=== PATIENT | male | born 1960 | race Caucasian/White ===

== ENCOUNTER 2016-08-28 20:40 | Emergency (ER) | payer BC ==
--- NOTE | 2016-08-28 21:29 | UC ---
Throat Pain/Nasal Miguel HPI - HPI Summary HPI Summary: # days of worsening nasal congestion and sore throat---spoke with a pharmacist 2 days ago who suggested Zyrtec D---Pt is unsure if it is helping or not---has no fever, - History of Current Complaint Hx Obtained From: Patient Onset/Duration: Gradual Onset, Lasting Days - 3, Still Present Severity: Moderate Pain Intensity: 5 Pain Scale Used: 0-10 Numeric Cough: None Associated Signs & Symptoms: Positive: Sinus Discomfort, Nasal Discharge <Hoda Fallon - Last Filed: 08/28/16 22:29> <Yazmin Morales - Last Filed: 08/29/16 07:25> - History of Current Complaint Chief Complaint: UCGeneralIllness Stated Complaint: SORE THROAT,SINUS PRESSURE & PAIN,CONGESTION Time Seen by Provider: 08/28/16 21:00 - Allergies/Home Medications Allergies/Adverse Reactions: Allergies Allergy/AdvReac Type Severity Reaction Status Date / Time No Known Allergies Allergy Verified 04/03/16 16:43 Home Medications: Home Medications Perphenazine (NF) 8 mg PO 08/28/16 [History] PMH/Surg Hx/FS Hx/Imm Hx Previously Healthy: No Endocrine History Of: Reports: Diabetes Denies: Thyroid Disease Cardiovascular History Of: Denies: Cardiac Disorders, Hypertension Respiratory History Of: Denies: COPD, Asthma GI/ History Of: Denies: Ulcer - Surgical History Surgical History: Yes Surgery Procedure, Year, and Place: HERNIA REPAIR - 1994. 1997. ANKLE - LIGAMENT REPAIR RIGHT AND LEFT - Family History Known Family History: Positive: Hypertension, Diabetes Negative: Cardiac Disease - Social History Occupation: Employed Full-time Lives: With Family Alcohol Use: None Substance Use Type: None, Prescribed Smoking Status (MU): Former Smoker <Hoda Fallon - Last Filed: 08/28/16 22:29> Review of Systems Constitutional: Negative Skin: Negative Eyes: Negative ENT: Sore Throat, Nasal Discharge Respiratory: Negative Cardiovascular: Negative Gastrointestinal: Negative Genitourinary: Negative Motor: Negative Neurovascular: Negative Musculoskeletal: Negative Neurological: Negative Psychological: Negative All Other Systems Reviewed And Are Negative: Yes <Hoda Fallon - Last Filed: 08/28/16 22:29> Physical Exam Triage Information Reviewed: Yes Appearance: Well-Appearing, No Pain Distress, Well-Nourished Vital Signs: Initial Vital Signs Temp 98.1 F 08/28/16 21:16 Pulse 64 08/28/16 21:16 Resp 16 08/28/16 21:16 BP 146/102 08/28/16 21:16 Pulse Ox 98 08/28/16 21:16 Vital Signs Reviewed: Yes Eye Exam: Normal Eyes: Positive: Conjunctiva Clear ENT Exam: Normal ENT: Positive: Normal ENT inspection, Hearing grossly normal, Pharynx normal, Nasal congestion, Nasal drainage, TMs normal. Negative: Tonsillar swelling, Tonsillar exudate, Trismus, Muffled/hoarse voice Dental Exam: Normal Neck exam: Normal Neck: Positive: Supple, Nontender, No Lymphadenopathy Respiratory Exam: Normal Respiratory: Positive: Chest non-tender, Lungs clear, Normal breath sounds, No respiratory distress, No accessory muscle use Cardiovascular Exam: Normal Cardiovascular: Positive: RRR, No Murmur, Pulses Normal, Brisk Capillary Refill Musculoskeletal Exam: Normal Musculoskeletal: Positive: Strength Intact, ROM Intact, No Edema Neurological Exam: Normal Neurological: Positive: Alert, Muscle Tone Normal Psychological Exam: Normal Skin Exam: Normal <Hoda Fallon - Last Filed: 08/28/16 22:29> Vital Signs: Initial Vital Signs Temp 98.1 F 08/28/16 21:16 Pulse 64 08/28/16 21:16 Resp 16 08/28/16 21:16 BP 146/102 08/28/16 21:16 Pulse Ox 98 08/28/16 21:16 <Yazmin Morales - Last Filed: 08/29/16 07:25> Throat Pain/Nasal Course/Dx - Course Assessment/Plan: add flonase--if symptoms fail to improve or worsen in the next 7 days may add antibiodic, recheck bp with pcp consider DASH Diet plan - Differential Dx/Diagnosis Differential Diagnosis/HQI/PQRI: Laryngitis, Pharyngitis, Sinusitis, URI Provider Diagnoses: Rhinosinuisitis, High Blood Pressure without dx of Hypertension <Hoda Fallon - Last Filed: 08/28/16 22:29> Discharge <Hoda Fallon - Last Filed: 08/28/16 22:29> <Yazmin Morales - Last Filed: 08/29/16 07:25> - Discharge Plan Condition: Stable Disposition: HOME Prescriptions: Amoxicillin/Clavulanate TAB* [Augmentin TAB 875*] 875 mg PO BID #20 tab Fluticasone NASAL SPRAY 50MCG* [Flonase NASAL SPRAY 50MCG*] 2 spray BOTH NARES DAILY #1 btl Patient Education Materials: Rhinosinusitis (ED), DASH Eating Plan (ED), Hypertension (ED), How to Use Nasal [place] (ED) Referrals: Louie Peralta MD [Primary Care Provider] - 2 Weeks Attestation Statement User Type: Provider - I was available for consult. This patient was seen by the SB. The patient was not presented to, seen by, or examined by me. -[place] <Yazmin Morales - Last Filed: 08/29/16 07:25>
[2016-08-28 22:46] VITALS: BP 135/95
== END 2016-08-28 21:55 | disposition home or self-care (01) ==
LOC: UCEAST 20:40
DX: J32.9 Chronic sinusitis, unspecified (principal); R03.0 Elevated blood-pressure reading, without diagnosis of hypertension; E11.9 Type 2 diabetes mellitus without complications; Z87.891 Personal history of nicotine dependence
CPT/HCPCS: 99202; G0463

== ENCOUNTER → 2017-05-31 07:00 | Day surgery (SDC) | payer BC ==
--- NOTE | 2017-05-27 03:54 | HP ---
PREOPERATIVE HISTORY AND PHYSICAL: DATE OF SURGERY/ADMISSION: 05/31/17 [facility] DATE OF OFFICE VISIT/ENCOUNTER: 05/25/17 ATTENDING SURGEON: Daisy Raines MD * (DICTATED BY ELIAZAR DAVIS) PROCEDURE: Right hand excision mass. CHIEF COMPLAINT: Mass, right hand. HISTORY OF PRESENT ILLNESS: This is a 57-year-old male who reports a painful mass on the volar aspect of his right hand in line with his index finger. It has been present approximately 1 month. It hurts whenever he squeezes anything. It has become quite bothersome. 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 He would like to have the mass removed. PAST MEDICAL HISTORY: 1. Bipolar disorder. 2. Questionable history of rheumatoid arthritis. 3. 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 4. Asthma. 5. Diabetes type 2. PAST SURGICAL HISTORY: 1. Hernia. 2. Ankle surgery. CURRENT MEDICATIONS: 1. Centrum Silver adult vitamin. 2. Kourtney-C 1000 mg daily. 3. Levothyroxine sodium 100 mcg daily. 4. Bearden carbonate ER 450 mg 3 tabs daily. 5. Metformin HCl 500 mg twice a day. 6. [place]-3 1000 mg 1 daily. 7. Perphenazine 8 mg daily. 8. Vitamin B6 25 mg daily. 9. Vitamin B12 1000 mcg daily. ALLERGIES: No known drug allergies. FAMILY MEDICAL HISTORY: Cancer, rheumatoid arthritis, diabetes, and heart disease. 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 He is a former smoker. He quit smoking 30 years ago. He denies illicit drug use and does not drink alcohol. REVIEW OF SYSTEMS: General: Negative for fevers, chills, or night sweats. No known anesthesia problems. HEENT: Negative for headache, lightheadedness, or syncopal episodes. Integumentary: Negative for abrasions, lesions, or open wounds. Cardiothoracic: Negative for hypertension, chest pain, palpitations, and edema. Pulmonary: Positive for shortness of breath related to asthma. Negative for chronic cough or COPD. GI: Negative for nausea, vomiting, diarrhea, constipation, or GERD. : Negative for nocturia, urinary frequency , urgency, history of UTIs, or kidney problems. Musculoskeletal: Positive for current complaint. Negative for chronic or intermittent back pain or history of fractures. Neurological: Positive for bipolar disorder. Negative for paresthesias, numbness, history of seizure, stroke, or epilepsy. Endocrine: Positive for diabetes mellitus type 2 and hypothyroidism associated with medication. Hematologic: Negative for easy bruising, anemia, excessive bleeding , or history of DVT. Infectious Disease: Negative for history of MRSA, hepatitis C, or HIV. PHYSICAL EXAMINATION GENERAL: Well-developed, well-nourished 57-year-old male, in no acute distress. VITAL SIGNS: Height 5 feet 9 inches, weight 230 pounds. Pulse rate 62, blood pressure 158/62. HEENT: Normocephalic, atraumatic. Pupils are equal, round, and reactive to light and accommodation. Extraocular movements are intact. NECK: Supple. No palpable lymph nodes. Throat is clear. PULMONARY: Lungs are clear to auscultation bilaterally. No wheezes, rales, or rhonchi. CARDIOVASCULAR: Regular rate and rhythm. S1 and S2. No murmurs, rubs, or gallops. No edema. ABDOMEN: Positive bowel sounds. Soft, nontender. NEUROLOGIC: Alert and oriented x3. Cranial nerves II through XII are intact. Sensation is intact to light touch. PERIPHERAL VASCULAR: 2+ radial and ulnar pulses. Negative Ronan test. MUSCULOSKELETAL: On exam of his right hand, he has a tender cystic mass just proximal to the A1 chloe of the right index finger. He can flex and extend his finger well and there is no clicking or locking. The mass is very tender. It does not have a positive Tinel's sign. Neurovascular function is intact. SKIN: Intact. IMAGING STUDIES: X-rays AP, lateral and oblique of the right hand show no significant bony abnormality. ASSESSMENT: Ganglion cyst of the right index finger flexor tendon sheath. PLAN: The patient is scheduled to undergo a right hand excision mass with Dr. Raines on 05/27/17. He will return to the office 10 days postop for followup and suture removal. A prescription for Tylenol No. 3 was e-scribed to the patient's pharmacy for postoperative pain management. ELIAZAR DAVIS [id number]/[facility] #: [id number] VICK
[~2017-05-31 07:00] MED LIST: Buffered Lidocaine 0.9% SYRIN* 5 ML/SYR SYRINGE INTRADERM ONE; DiMENhydriNATE IV* 50 MG/ML VIAL IV PUSH PRN; Famotidine IV* 10 MG/ML 2 ML (20 mg) IV ONE; Famotidine IV* 10 MG/ML 2 ML (20 mg) ONE; KETAMINE HCL* 50 MG/ML 10 ML VIAL ONE; Ketorolac INJ* 30 MG/ML 1 ML VIAL ONE; Lidocaine 1% INJ* 10 MG/ML 30 ML SDV ONE; Lidocaine 2% PF * 5 ML VIAL ONE; Midazolam* 1 MG/ML 2 ML VIAL (2 MG) ONE; Naloxone* 0.4 MG/ML 1 ML VIAL IV PRN; Ondansetron INJ* 2 MG/ML VIAL ONE; PROCHLORPERAZINE INJ 5 MG/ML 2 ML VIAL IV PRN; Propofol* 10 MG/ML 20 ML BTL IV PUSH ONE; fentaNYL* 50 MCG/ML 2 ML VIAL (100 MCG VIAL) IV PRN; fentaNYL* 50 MCG/ML 2 ML VIAL (100 MCG VIAL) ONE; oxyCODONE/Acetamin 5/325 MG* TAB PO PRN
[2017-05-31 09:24] VITALS: BP 147/92
--- NOTE | 2017-05-31 22:50 | OP ---
DATE OF OPERATION: 05/31/17 [facility] DATE OF : 64 SURGEON: Daisy Raines MD [employer] TECHNICIAN: ELIAZAR Thompson ANESTHESIA: Local MAC. PRE-OP DIAGNOSIS: Right hand mass. POST-OP DIAGNOSIS: Right hand mass. OPERATIVE PROCEDURE: Removal, right hand mass. INDICATIONS: Tavo is a 57-year-old man with a painful mass on the volar aspect of his right index finger overlying the A1 chloe. He presents for removal. ESTIMATED BLOOD LOSS: Zero. TOURNIQUET TIME: 10 minutes. DESCRIPTION OF PROCEDURE: The patient was brought to the operating room, was given a sedation anesthetic and a local infiltration of 10 cc of 1% plain lidocaine in the palm of his right hand. The skin of his right hand and forearm was prepped and draped in the usual sterile fashion. The hand and forearm were exsanguinated and the tourniquet elevated to 250 mmHg. A transverse incision was made centered over the mass. We dissected bluntly through the subcutaneous tissue down to the A1 chloe. There was a large ganglion cyst emanating from the chloe. The neurovascular bundles were retracted by the surgical assistant certified, Giovanna Sargent. The A1 chloe was incised longitudinally, and a portion of it removed with the ganglion cyst attached to it. The flexor tendons were in good condition. The wound was irrigated and the skin edges reapproximated with 4-0 nylon suture. The wound was dressed with Xeroform, 4x4, Webril, and an Wilmer wrap. The patient tolerated the procedure well and was brought to the recovery room in good condition. [id number]/[facility] #: [id number] VICK
== END | disposition home or self-care (01) ==
LOC: OREAST 07:00
PROVIDERS: ATTEND Orthopaedic Surgery
DX: M67.441 Ganglion, right hand (principal); E11.9 Type 2 diabetes mellitus without complications; Z79.84 Long term (current) use of oral hypoglycemic drugs; F31.9 Bipolar disorder, unspecified; E03.9 Hypothyroidism, unspecified; J45.909 Unspecified asthma, uncomplicated; Z87.891 Personal history of nicotine dependence
CPT/HCPCS: 88304; J1885; J2250; J2405; J2704; J3010

== ENCOUNTER 2017-10-05 20:00 | Emergency (ER) | payer BC ==
[2017-10-05 20:23] VITALS: BP 160/111
--- NOTE | 2017-10-05 20:44 | UC ---
Skin Complaint HPI - HPI Summary HPI Summary: insect bite to right arm and right leg 1 week ago - History of Current Complaint Chief Complaint: UCSkin Time Seen by Provider: 10/05/17 20:37 Stated Complaint: BUG BITES Hx Obtained From: Patient Onset/Duration: Sudden Onset, Lasting Weeks - 1, Still Present Skin Exposure Onset/Duration: Minutes Ago Onset Severity: Mild Current Severity: None Pain Intensity: 0 Pain Scale Used: 0-10 Numeric Location: Discrete Aggravating Factor(s): Nothing Alleviating Factor(s): Nothing Associated Signs & Symptoms: Positive: Negative Related History: Insect Bite/Sting - Allergy/Home Medications Allergies/Adverse Reactions: Allergies Allergy/AdvReac Type Severity Reaction Status Date / Time onion Allergy Severe GI Upset Verified 10/05/17 20:23 orange juice Allergy Severe GI Upset Verified 10/05/17 20:23 Perfume [Fragrance] Allergy Headache Verified 10/05/17 20:23 ENVIRONMENTAL Allergy Unknown Uncoded 10/05/17 20:23 Reaction Details Review of Systems Constitutional: Negative Skin: Other - insect bite (never seen a tick---patient is concerned about LYME) Eyes: Negative ENT: Negative Respiratory: Negative Cardiovascular: Negative Gastrointestinal: Negative Genitourinary: Negative Motor: Negative Neurovascular: Negative Musculoskeletal: Negative Neurological: Negative Psychological: Negative Is Patient Immunocompromised?: No All Other Systems Reviewed And Are Negative: Yes PMH/Surg Hx/FS Hx/Imm Hx Previously Healthy: No Endocrine History: Diabetes, Hypothyroidism Psychological History: Bipolar Disorder - Surgical History Surgical History: Yes Surgery Procedure, Year, and Place: HERNIA REPAIR - 1994. 1997-LEFT AND RIGHT. ANKLE - LIGAMENT REPAIR RIGHT AND LEFT. TONSILLECTOMY. 2012-RIGHT INDEX FINGER -EXCISION OF GANGLION. RIGHT MIDDLE FINGER BIOPSY - Family History Known Family History: Positive: Hypertension, Diabetes Negative: Cardiac Disease - Social History Occupation: Employed Full-time Lives: With Family Alcohol Use: Rare Substance Use Type: None Smoking Status (MU): Former Smoker Amount Used/How Often: OCCASIONALLY X 3 YEARS Have You Smoked in the Last Year: No When Did the Patient Quit Smoking/Using Tobacco: 30+ YEARS AGO Physical Exam Triage Information Reviewed: Yes Appearance: Well-Appearing, No Pain Distress, Well-Nourished Vital Signs: Initial Vital Signs Temp 97.5 F 10/05/17 20:19 Pulse 55 10/05/17 20:19 Resp 18 10/05/17 20:19 BP 160/111 10/05/17 20:19 Pulse Ox 98 10/05/17 20:19 Vital Signs Reviewed: Yes Eye Exam: Normal Eyes: Positive: Conjunctiva Clear ENT Exam: Normal ENT: Positive: Normal ENT inspection, Hearing grossly normal, Pharynx normal. Negative: Trismus, Muffled voice, Hoarse voice Dental Exam: Normal Neck exam: Normal Neck: Positive: Supple, Nontender Respiratory Exam: Normal Respiratory: Positive: Chest non-tender, No respiratory distress, No accessory muscle use Cardiovascular Exam: Normal Cardiovascular: Positive: RRR, Pulses Normal, Brisk Capillary Refill Musculoskeletal Exam: Normal Musculoskeletal: Positive: Strength Intact, ROM Intact, No Edema Neurological Exam: Normal Neurological: Positive: Alert, Muscle Tone Normal Psychological Exam: Normal Psychological: Positive: Normal Response To Family Skin Exam: Normal Course/Dx - Course Course Of Treatment: patient is concerned about Lyme disease. Education and reassurance and written information provided, follow with pcp for further concerns and blood pressure re-check - Diagnoses Provider Diagnoses: insect bites, elevated blood pressure without dx of hypertension Discharge - Sign-Out/Discharge Documenting (check all that apply): Patient Departure - Discharge Plan Condition: Stable Disposition: HOME Patient Education Materials: Lyme Disease (ED), Tick Bite (ED), Hypertension ( ED) Referrals: Louie Peralta MD [Primary Care Provider] - 1 Week (BP recheck ) - Billing Disposition and Condition Condition: STABLE Disposition: Home
== END 2017-10-05 20:54 | disposition home or self-care (01) ==
LOC: UCEAST 20:00
DX: S40.861A Insect bite (nonvenomous) of right upper arm, initial encounter (principal); S80.861A Insect bite (nonvenomous), right lower leg, initial encounter; W57.XXXA Bitten or stung by nonvenomous insect and other nonvenomous arthropods, initial encounter; Y93.9 Activity, unspecified; Y92.9 Unspecified place or not applicable; R03.0 Elevated blood-pressure reading, without diagnosis of hypertension; E11.9 Type 2 diabetes mellitus without complications; Z79.84 Long term (current) use of oral hypoglycemic drugs; E03.9 Hypothyroidism, unspecified; Z82.49 Family history of ischemic heart disease and other diseases of the circulatory system; Z83.3 Family history of diabetes mellitus; Z87.891 Personal history of nicotine dependence
CPT/HCPCS: 99211; G0463

== ENCOUNTER 2018-01-28 19:13 | Emergency (ER) | payer BC ==
[2018-01-28 19:43] VITALS: BP 165/105
[2018-01-28] MEDS ORDERED: Amoxicillin/Clavulanate TAB* 875 MG PO ONE (20:41)
--- NOTE | 2018-01-28 20:41 | UC ---
Throat Pain/Nasal Miguel HPI - HPI Summary HPI Summary: pain congestion yellow nasal drainage, worsening headaches over the past several days - History of Current Complaint Chief Complaint: UCRespiratory Stated Complaint: CONGESTED Time Seen by Provider: 01/28/18 20:10 Hx Obtained From: Patient Onset/Duration: Gradual Onset, Lasting Days, Still Present Pain Intensity: 8 Pain Scale Used: 0-10 Numeric Cough: None Associated Signs & Symptoms: Positive: Sinus Discomfort, Nasal Discharge - Allergies/Home Medications Allergies/Adverse Reactions: Allergies Allergy/AdvReac Type Severity Reaction Status Date / Time coffee (Coffea arabica) Allergy Severe Diarrhea Verified 01/28/18 19:44 onion Allergy Severe GI Upset Verified 01/28/18 19:44 orange juice Allergy Severe GI Upset Verified 01/28/18 19:44 Perfume [Fragrance] Allergy Headache Verified 01/28/18 19:44 CHOCOLATE Allergy Severe Diarrhea Uncoded 01/28/18 19:45 ENVIRONMENTAL Allergy Unknown Uncoded 01/28/18 19:44 Reaction Details PMH/Surg Hx/FS Hx/Imm Hx Previously Healthy: No Endocrine History: Hypothyroidism Psychological History: Bipolar Disorder - Surgical History Surgical History: Yes Surgery Procedure, Year, and Place: HERNIA REPAIR - 1994. 1997-LEFT AND RIGHT. ANKLE - LIGAMENT REPAIR RIGHT AND LEFT. TONSILLECTOMY. 2012-RIGHT INDEX FINGER -EXCISION OF GANGLION. RIGHT MIDDLE FINGER BIOPSY - Family History Known Family History: Positive: Hypertension, Diabetes Negative: Cardiac Disease - Social History Occupation: Employed Full-time Lives: With Family Alcohol Use: None Substance Use Type: None Smoking Status (MU): Former Smoker Amount Used/How Often: OCCASIONALLY X 3 YEARS Have You Smoked in the Last Year: No When Did the Patient Quit Smoking/Using Tobacco: 30+ YEARS AGO Review of Systems Constitutional: Chills, Fatigue Skin: Negative Eyes: Negative ENT: Nasal Discharge, Sinus Congestion, Sinus Pain/Tenderness Respiratory: Negative Cardiovascular: Negative Gastrointestinal: Negative Genitourinary: Negative Motor: Negative Neurovascular: Negative Musculoskeletal: Negative Neurological: Headache Psychological: Negative Is Patient Immunocompromised?: No All Other Systems Reviewed And Are Negative: Yes Physical Exam Triage Information Reviewed: Yes Appearance: Well-Nourished, Ill-Appearing, Pain Distress Vital Signs: Initial Vital Signs Temp 97.8 F 01/28/18 19:39 Pulse 69 10/20/18 19:39 Resp 16 01/28/18 19:39 BP 165/105 01/28/18 19:39 Pulse Ox 99 01/28/18 19:39 Vital Signs Reviewed: Yes Eye Exam: Normal Eyes: Positive: Conjunctiva Clear ENT Exam: Normal ENT: Positive: Normal ENT inspection, Hearing grossly normal, Pharynx normal, Nasal congestion, Nasal drainage, TMs normal, Sinus tenderness, Uvula midline. Negative: Tonsillar swelling, Tonsillar exudate, Trismus, Muffled voice, Hoarse voice, Dental tenderness Dental Exam: Normal Neck exam: Normal Neck: Positive: Supple, Nontender, No Lymphadenopathy Respiratory Exam: Normal Respiratory: Positive: Chest non-tender, Lungs clear, Normal breath sounds, No respiratory distress, No accessory muscle use Cardiovascular Exam: Normal Cardiovascular: Positive: RRR, No Murmur, Pulses Normal, Brisk Capillary Refill Musculoskeletal Exam: Normal Musculoskeletal: Positive: Strength Intact, ROM Intact, No Edema Neurological Exam: Normal Neurological: Positive: Alert, Muscle Tone Normal Psychological Exam: Normal Skin Exam: Normal Throat Pain/Nasal Course/Dx - Course Assessment/Plan: augmentin flonase stop sudafed (due to blood pressure) follow blood pressure with pcp - Differential Dx/Diagnosis Provider Diagnoses: Acute rhinosinusitis, elevated blood pressure with out history of hypertension Discharge - Sign-Out/Discharge Documenting (check all that apply): Patient Departure All imaging exams completed and their final reports reviewed: No Studies - Discharge Plan Condition: Stable Disposition: HOME Prescriptions: Amoxicillin/Clavulanate TAB* [Augmentin TAB 875*] 875 mg PO BID #19 tab Fluticasone NASAL SPRAY 50MCG* [Flonase NASAL SPRAY 50MCG*] 2 spray BOTH NARES DAILY #1 btl Patient Education Materials: Fluticasone (Into the nose), Sinusitis (ED), Hypertension (ED) Forms: *Work Release Referrals: Louie Peralta MD [Primary Care Provider] - 2 Weeks - Billing Disposition and Condition Condition: STABLE Disposition: Home
== END 2018-01-28 21:09 | disposition home or self-care (01) ==
LOC: UCEAST 19:13
DX: J01.90 Acute sinusitis, unspecified (principal); R03.0 Elevated blood-pressure reading, without diagnosis of hypertension; Z87.891 Personal history of nicotine dependence
CPT/HCPCS: 99212; A9270-GY; G0463